=== PATIENT | female | born 1965 | race Caucasian/White ===

== ENCOUNTER → 2016-08-12 | Outpatient (CLI) | payer BC ==
[~2016-08-12] MED LIST: CPR500T PO; ONDA4TAB8 PO
[2016-08-12 10:20] LABS: BILIRUBIN,URINE Negative (Negative); CLARITY,URINE Cloudy; GLUCOSE, URINE (UA) Negative (Negative); LEUKOCYTE ESTERASE, URINE Negative (Negative); PH,URINE 5.5 (5.0 - 8.0); UROBILINOGEN,URINE 0.2 mg/dL (0.2-1.0)
[2016-08-12 10:26] LABS: COLOR,URINE Dark Yellow
[2016-08-12 10:38] LABS: URINE CENTRIFUGED VOLUME 12 mL
== END ==
LOC: LAB 09:50
PROVIDERS: ATTEND Urology
DX: R30.0 Dysuria (principal)
CPT/HCPCS: 81003; 81015; 87088

== ENCOUNTER → 2016-09-02 | Outpatient (CLI) | payer BC ==
--- NOTE | 2016-09-02 10:41 | Diagnostic Imaging Report ---
PROCEDURE: CT abdomen and pelvis with and without contrast. TECHNIQUE: Precontrast acquisitions were acquired through the abdomen and pelvis. Multiple contiguous axial images were obtained through the abdomen and pelvis after the administration of intravenous contrast. INDICATION: Microscopic hematuria. FINDINGS: The lung bases are clear. The liver appears normal. The gallbladder is surgically absent. The pancreas is normal. The spleen is not enlarged. The adrenals appear normal. There is no mass, calculus, or hydronephrosis in either kidney. The ureters are clear. The urinary bladder appears grossly normal. There is no retroperitoneal free air or free fluid. The small bowel is not dilated. The pancreas is normal. The colon is unremarkable. IMPRESSION: No acute abnormality is seen in the abdomen or pelvis. Dictated by: Dictated on workstation # [id number]
== END ==
LOC: RAD 07:17
PROVIDERS: ATTEND Urology
DX: N30.21 Other chronic cystitis with hematuria (principal); R31.29 Other microscopic hematuria
CPT/HCPCS: 36415; 74178; 82565; 84520; Q9967